=== PATIENT | male | born 1995 | race American Indian/Alaskan Native ===

== ENCOUNTER 2018-09-07 14:13 | Emergency (ER) | payer MEDICAID ==
[2018-09-07 14:22] VITALS: BMI 29.0
--- NOTE | 2018-09-07 15:00 | ED PDOC ---
Arrival/HPI - General Chief Complaint: Male Genitourinary Time Seen by Provider: 09/07/18 14:19 Historian: Patient - History of Present Illness Narrative History of Present Illness (Text): 09/07/18 14:57 22 year old male with no significant pmh presents for evaluation for possible STD. Patient reports having unprotected sex with a female he heard was diagnosed with chlamydia. He denies any penile discharge, dysuria or rash. He mentions his testicles feel heavy. He is sexually active with multiple partners and occasional unprotected sex. PO intake at baseline. Patient denies any fevers, chills, headache, dizziness, chest pain, shortness of breath, dyspnea on exertion, cough, diaphoresis, abdominal pain, nausea, vomiting, diarrhea, back pain, neck pain, or any other complaint. Time/Duration: Prior to Arrival Symptom Onset: Sudden Symptom Course: Unchanged Activities at Onset: Light Context: Home Past Medical History - Provider Review Nursing Documentation Reviewed: Yes - Infectious Disease Hx of Infectious Diseases: None - Psychiatric Hx Substance Use: No - Anesthesia Hx Anesthesia: No Family/Social History - Physician Review Nursing Documentation Reviewed: Yes Family/Social History: Unknown Family HX Smoking Status: Light Smoker < 10 Cigarettes Daily Hx Alcohol Use: No Hx Substance Use: No Allergies/Home Meds Allergies/Adverse Reactions: Allergies No Known Allergies Allergy (Verified 09/07/18 14:22) Home Medications: Home Meds Medication Instructions Recorded Confirmed No Known Home Med 09/07/18 09/07/18 Review of Systems - Physician Review All systems were reviewed & negative as marked: Yes - Review of Systems Constitutional: absent: Fatigue, Fevers ENT: absent: Rhinorrhea, Epistaxis Respiratory: absent: SOB, Cough, Wheezing Cardiovascular: absent: Chest Pain, Edema, HALL, Orthopnea, Syncope, Other Gastrointestinal: absent: Abdominal Pain, Constipation, Diarrhea, Nausea, Vomiting, Hematochezia, Hematemesis, Anorexia Genitourinary Male: absent: Dysuria, Hematuria Musculoskeletal: absent: Arthralgias, Back Pain, Neck Pain, Myalgias Skin: absent: Rash, Pruritis, Laceration, Cellulitis Neurological: absent: Headache, Dizziness Psychiatric: absent: Anxiety, Depression Physical Exam Vital Signs Reviewed: Yes Vital Signs Temp Pulse Resp BP Pulse Ox 09/07/18 14:26 98.2 F 87 18 150/87 97 Temperature: Afebrile Blood Pressure: Normal Pulse: Regular Respiratory Rate: Normal Appearance: Positive for: Well-Appearing, Non-Toxic, Comfortable Pain Distress: None Mental Status: Positive for: Alert and Oriented X 3 - Systems Exam Head: Present: Atraumatic Mouth: Present: Moist Mucous Membranes Neck: Present: Normal Range of Motion Respiratory/Chest: Present: Clear to Auscultation, Good Air Exchange. No: Respiratory Distress, Accessory Muscle Use Cardiovascular: Present: Regular Rate and Rhythm, Normal S1, S2. No: Murmurs Abdomen: No: Tenderness, Distention, Peritoneal Signs Genitourinary Male: Present: Normal External Genitalia, Circumcised Penis, Other (Fruit Peeler by Carlito (bibi)). No: Lesions, Penile Discharge, Testicle Tenderness, Penile Swelling, Erythema, Testicle Swelling Back: Present: Normal Inspection Upper Extremity: Present: Normal ROM Lower Extremity: Present: Normal ROM Neurological: Present: GCS=15, Speech Normal Skin: Present: Warm, Dry, Normal Color. No: Rashes Psychiatric: Present: Alert, Oriented x 3 Medical Decision Making ED Course and Treatment: 09/07/18 15:00 22 year old male presents for evaluation STD exposure Patient is nontoxic well-appearing in no distress with stable vital signs Ceftriaxone 250 mg IM Zithromax 1 g p.o. given Gonorrhea and Chlamydia cultures are pending. Advised patient to refrain from sex for 10 days followup with the primary care physician within the next 2 days or return if symptoms worsen persist or if new symptoms develop. Patient verbalizes understanding of discharge instructions and need for immediate followup. All aspects of this case were discussed the attending of record. Impression: STD exposure Follow up primary care physician within the next 2 days Return if symptoms worsen persist or if new symptoms develop. - Scribe Statement The provider has reviewed the documentation as recorded by the Bibi Restrepo All medical record entries made by the Bibi were at my direction and personally dictated by me. I have reviewed the chart and agree that the record accurately reflects my personal performance of the history, physical exam, medical decision making, and the department course for this patient. I have also personally directed, reviewed, and agree with the discharge instructions and dis position. Disposition/Present on Arrival - Present on Arrival Any Indicators Present on Arrival: No History of DVT/PE: No History of Uncontrolled Diabetes: No Urinary Catheter: No History of Decub. Ulcer: No History Surgical Site Infection Following: None - Disposition Have Diagnosis and Disposition been Completed?: Yes Diagnosis: STD exposure Disposition: HOME/ ROUTINE Disposition Time: 16:06 Patient Plan: Discharge Patient Problems: Current Active Problems Problem Status Onset STD exposure Acute Condition: GOOD Discharge Instructions (ExitCare): Sexually-Transmitted Diseases (DC) Additional Instructions: Follow up primary care physician within the next 2 days Return if symptoms worsen persist or if new symptoms develop. Referrals: Sandrine Weber MD [Medical Doctor] - Follow up with primary [facility] [Outside] - Follow up with primary Forms: [facility] ([place])
[2018-09-07] MEDS ORDERED: cefTRIAXone (Rocephin) 250 mg Inj IM STA (15:24)
[2018-09-07] MEDS ORDERED: Lidocaine 1% 5ml Abboject ONE (15:44)
[2018-09-07 16:11] VITALS: BP 131/79; PULSE 79; RESP 17; TEMP 98; O2SAT 99
== END 2018-09-07 16:10 | disposition home or self-care (01) ==
LOC: ED 14:13
DX: Z20.2 Contact with and (suspected) exposure to infections with a predominantly sexual mode of transmission (principal)
CPT/HCPCS: 87491; 87591; 96372; 99283; J0696